=== PATIENT | female | born 1925 | race Caucasian/White ===

== ENCOUNTER → 2016-12-22 | Outpatient (CLI) | payer MEDICARE ==
[~2016-12-22] MED LIST: ACET-1600 PO; CEPH-368 PO; HYDR-3138 PO; HYDR-3240 PO; LORA-869 PO; VIT-3 PO
== END | disposition home or self-care (01) ==
LOC: RAD 14:47
PROVIDERS: ATTEND Family Medicine
DX: R22.43 Localized swelling, mass and lump, lower limb, bilateral (principal)
CPT/HCPCS: 93970

== ENCOUNTER → 2016-12-24 | Outpatient (CLI) | payer MEDICARE | END | disposition home or self-care (01) | LOC: CFH 15:31 | PROVIDERS: ATTEND Family Medicine | DX: M75.102 Unspecified rotator cuff tear or rupture of left shoulder, not specified as traumatic (principal); M75.52 Bursitis of left shoulder; M25.412 Effusion, left shoulder; M19.012 Primary osteoarthritis, left shoulder ==

== ENCOUNTER 2017-02-16 16:53 | Emergency (ER) | payer MEDICARE ==
[~2017-02-16] VITALS: Ht 157.5 cm; Wt 75.0 kg
[2017-02-16 20:05] VITALS: BP 116/71
[2017-02-17] MEDS ORDERED: DICL25TA PO (19:07)
[2017-02-17] MEDS ORDERED: CYCL5TAB PO (19:07)
[2017-02-17] MEDS ORDERED: FURO-93 PO (19:07)
[2017-02-17] MEDS ORDERED: POTA8TAB6 PO (19:07)
== END 2017-02-16 20:07 | disposition home or self-care (01) ==
LOC: ED 18:35
DX: S00.12XA Contusion of left eyelid and periocular area, initial encounter (principal); S00.83XA Contusion of other part of head, initial encounter; S20.212A Contusion of left front wall of thorax, initial encounter; S70.02XA Contusion of left hip, initial encounter; Z90.710 Acquired absence of both cervix and uterus; W01.10XA Fall on same level from slipping, tripping and stumbling with subsequent striking against unspecified object, initial encounter; Y93.89 Activity, other specified; Y92.89 Other specified places as the place of occurrence of the external cause; Y99.8 Other external cause status
CPT/HCPCS: 70450; 70486; 71010; 72125; 93005; 99284

== ENCOUNTER 2017-02-17 17:41 | Inpatient (IN) | payer MEDICARE ==
[~2017-02-17] VITALS: Ht 157.5 cm; Wt 82.5 kg
[2017-02-17] MEDS ORDERED: ACETAMINOPHEN 500 MG TABLET ONE (18:16)
[2017-02-17] MEDS ORDERED: CEFTRIAXONE PMX 1GM/50ML 50 ML ONE (18:16)
[2017-02-17] MEDS ORDERED: ACETAMINOPHEN 500 MG TABLET PO ONE (18:30)
[2017-02-17] MEDS ORDERED: SODIUM CHLORIDE FLUSH 10ML SYR IVF ONE (18:30)
[2017-02-17] MEDS ORDERED: CEFTRIAXONE PMX 1GM/50ML 50 ML IV ONE (18:30)
[2017-02-17] MEDS ORDERED: SODIUM CHLORIDE 0.9% 1,000ML IVBOLUS ONE (18:30)
[2017-02-17 18:43] LABS: ASPARTATE AMINO TRANSFERASE 216 U/L (15-37); BLOOD UREA NITROGEN 25 mg/dL (7-18)
[2017-02-17] MEDS ORDERED: FURO-93 PO (19:07)
[2017-02-17] MEDS ORDERED: CYCL5TAB PO (19:07)
[2017-02-17] MEDS ORDERED: DICL25TA PO (19:07)
[2017-02-17] MEDS ORDERED: POTA8TAB6 PO (19:07)
[2017-02-17] MEDS ORDERED: VANCOMYCIN PER PHARMACY MC PRN ×2 (19:30→22:30)
[2017-02-17] MEDS ORDERED: VANCOMYCIN 1,400 MG in SODIUM CHLORIDE 0.9% 250 ML IV ONE (19:30)
[2017-02-17 22:00] VITALS: BP 121/68
[2017-02-17] MEDS ORDERED: TEMAZEPAM 15 MG CAPSULE PO PRN (22:30)
[2017-02-17] MEDS ORDERED: morphine SULFATE 10 MG/ML, 1ML IVPush PRN (22:30)
[2017-02-17] MEDS ORDERED: CEFTRIAXONE PMX 1GM/50ML 50 ML IV SCH (22:30)
[2017-02-17] MEDS ORDERED: POLYETHYLENE GLYCOL 17 GM PACKET PO PRN (22:30)
[2017-02-17] MEDS ORDERED: ONDANSETRON 2MG/ML, 2ML IVPush PRN (22:30)
[2017-02-17] MEDS ORDERED: OXYcodone IR 5MG TABLET PO PRN (22:30)
[2017-02-17] MEDS ORDERED: DOCUSATE 100 MG CAPSULE PO PRN (22:30)
[2017-02-17] MEDS ORDERED: PHARMACOKINETIC MONITORING MC PRN (23:00)
[2017-02-17] MEDS ORDERED: PHARMACOKINETIC CONSULTATION MC ONE (23:00)
[2017-02-18] MEDS: D5%-0.45% NACL 1,000 ML IV SCH ×2 (00:22→09:52)
[2017-02-18 02:05] VITALS: BP 91/65
[2017-02-18] MEDS ORDERED: MAGNESIUM SULFATE PMX 2GM/50ML 50 ML IV ONE (02:30)
[2017-02-18] MEDS ORDERED: POTASSIUM CHLORIDE 10 MEQ in SODIUM CHLORIDE 0.9% 250 ML IV ONE (03:00)
[2017-02-18] MEDS ORDERED: ALBUTEROL SULFATE 2.5 MG/3 ML ONE (05:37)
[2017-02-18 05:41] LABS: BLOOD UREA NITROGEN 24 mg/dL (7-18)
[2017-02-18 05:45] LABS: ASPARTATE AMINO TRANSFERASE 176 U/L (15-37)
[2017-02-18] MEDS ORDERED: ALBUTEROL SULFATE 2.5 MG/3 ML NPPB ONE (06:00)
[2017-02-18] MEDS ORDERED: DOXYCYCLINE 100 MG in DEXTROSE 5% 250 ML IV SCH (08:00)
[2017-02-18] MEDS ORDERED: HEPARIN 5,000 UNITS/ML, 1ML SQ SCH (08:00)
[2017-02-18 08:24] VITALS: BP 160/75
[2017-02-18] MEDS: SENNA/DOCUSATE TABLET PO SCH (08:24)
[2017-02-18] MEDS ORDERED: PHARMACY MAY ADJ FOR RENAL FX MC PRN (08:30)
[2017-02-18] MEDS: FAMOTIDINE 20 MG TABLET PO SCH (08:33)
[2017-02-18 09:31] LABS: ABG COLLECTION SITE RIGHT RADIAL; COLLATERAL CIRCULATION TESTING NORMAL
[2017-02-18] MEDS: PIPERACILLIN/TAZO/PMX 3.375GM 50 ML IV SCH ×3 (09:52→20:40)
[2017-02-18] MEDS: ACETAMINOPHEN 325 MG TABLET PO PRN (11:55)
[2017-02-18] MEDS ORDERED: OMNIPAQUE 350 MG/ML, 100ML BOTTLE ONE (13:43)
[2017-02-18 13:56] VITALS: BP_SYST 112; BP_SYST 146; BP_DIAS 72; BP_DIAS 78
[2017-02-18] MEDS ORDERED: VANCOMYCIN PER PHARMACY MC PRN (15:30)
[2017-02-18] MEDS ORDERED: PHARMACOKINETIC MONITORING MC PRN (16:00)
[2017-02-18] MEDS ORDERED: VANCOMYCIN 1,200 MG in SODIUM CHLORIDE 0.9% 250 ML IV ONE (16:30)
[2017-02-18] MEDS ORDERED: ALBUTEROL/IPRATROPIUM 2.5MG/0.5MG, 3 ML ONE (18:58)
[2017-02-18] MEDS: ALBUTEROL/IPRATROPIUM 2.5MG/0.5MG, 3 ML NPPB SCH ×2 (19:00→22:20)
[2017-02-18 20:00] VITALS: BP 148/73
[2017-02-18] MEDS ORDERED: SODIUM CHLORIDE 0.9% 1,000 ML IV SCH (22:00)
[2017-02-19] MEDS: ALBUTEROL/IPRATROPIUM 2.5MG/0.5MG, 3 ML NPPB SCH ×6 (01:55→23:30)
[2017-02-19 02:00] VITALS: BP 145/68
[2017-02-19] MEDS: PIPERACILLIN/TAZO/PMX 3.375GM 50 ML IV SCH ×2 (03:38→08:59)
[2017-02-19 06:09] LABS: ASPARTATE AMINO TRANSFERASE 198 U/L (15-37); BLOOD UREA NITROGEN 18 mg/dL (7-18)
[2017-02-19 07:56] VITALS: BP 132/71
[2017-02-19] MEDS: SENNA/DOCUSATE TABLET PO SCH (08:59)
[2017-02-19] MEDS: FAMOTIDINE 20 MG TABLET PO SCH (08:59)
[2017-02-19] MEDS: CEFTAROLINE 600 MG in SODIUM CHLORIDE 0.9% 100 ML IV SCH ×2 (11:49→23:10)
[2017-02-19] MEDS: SODIUM CHLORIDE 0.9% 1,000 ML IV SCH (11:50)
[2017-02-19 14:00] VITALS: BP 128/70
[2017-02-19] MEDS ORDERED: PIPERACILLIN/TAZO/PMX 2.25GM 50 ML IVPB SCH (17:00)
[2017-02-19 20:55] VITALS: BP 133/72
[2017-02-19] MEDS ORDERED: SODIUM CHLORIDE 0.9% 1,000 ML IV SCH (22:00)
[2017-02-20] MEDS: SODIUM CHLORIDE 0.9% 1,000 ML IV SCH (00:20)
[2017-02-20 02:05] VITALS: BP 120/71
[2017-02-20] MEDS: ALBUTEROL/IPRATROPIUM 2.5MG/0.5MG, 3 ML NPPB SCH ×2 (03:30→07:30)
[2017-02-20 06:36] LABS: ASPARTATE AMINO TRANSFERASE 320 U/L (15-37); BLOOD UREA NITROGEN 19 mg/dL (7-18)
[2017-02-20 08:01] VITALS: BP 134/79
[2017-02-20] MEDS: SENNA/DOCUSATE TABLET PO SCH (09:00)
[2017-02-20] MEDS ORDERED: ALBUTEROL/IPRATROPIUM 2.5MG/0.5MG, 3 ML NPPB PRN (09:00)
[2017-02-20] MEDS: ACETAMINOPHEN 325 MG TABLET PO PRN (09:58)
[2017-02-20] MEDS: FAMOTIDINE 20 MG TABLET PO SCH (09:58)
[2017-02-20] MEDS: NS + 20MEQ KCL 1,000 ML IV SCH (09:58)
[2017-02-20 12:04] VITALS: BP 126/56
[2017-02-20] MEDS: CEFTAROLINE 600 MG in SODIUM CHLORIDE 0.9% 100 ML IV SCH (12:05)
[2017-02-20 19:22] VITALS: BP 158/81
[2017-02-21] MEDS: NS + 20MEQ KCL 1,000 ML IV SCH (01:10)
[2017-02-21] MEDS: CEFTAROLINE 600 MG in SODIUM CHLORIDE 0.9% 100 ML IV SCH (01:10)
[2017-02-21 01:23] VITALS: BP 185/72
[2017-02-21 06:04] LABS: BLOOD UREA NITROGEN 19 mg/dL (7-18)
[2017-02-21 07:55] VITALS: BP_SYST 148; BP_SYST 162; BP_DIAS 91
[2017-02-21] MEDS: FAMOTIDINE 20 MG TABLET PO SCH (09:08)
[2017-02-21] MEDS: SENNA/DOCUSATE TABLET PO SCH (09:08)
[2017-02-21 10:27] LABS: ASPARTATE AMINO TRANSFERASE 319 U/L (15-37)
[2017-02-21] MEDS: POTASSIUM CHLORIDE 20 MEQ TAB.ER.PRT PO SCH (11:29)
[2017-02-21] MEDS: FUROSEMIDE 20 MG TABLET PO SCH (11:29)
[2017-02-21] MEDS: METOPROLOL TARTRATE 25 MG TABLET PO SCH ×2 (11:29→21:37)
[2017-02-21] MEDS: CEFTRIAXONE PMX 1GM/50ML 50 ML IV SCH (11:32)
[2017-02-21] MEDS: DOXYCYCLINE 100 MG in DEXTROSE 5% 250 ML IV SCH (14:28)
[2017-02-21 14:41] VITALS: BP 143/89
[2017-02-21] MEDS ORDERED: CETIRIZINE 10 MG TABLET PO SCH (20:00)
[2017-02-21 22:50] VITALS: BP 153/77
[2017-02-22 02:00] VITALS: BP 164/77
[2017-02-22] MEDS: DOXYCYCLINE 100 MG in DEXTROSE 5% 250 ML IV SCH (02:55)
[2017-02-22 05:52] LABS: BLOOD UREA NITROGEN 18 mg/dL (7-18)
[2017-02-22 05:56] LABS: ASPARTATE AMINO TRANSFERASE 187 U/L (15-37)
[2017-02-22 08:00] VITALS: BP 158/85
[2017-02-22] MEDS: METOPROLOL TARTRATE 25 MG TABLET PO SCH (08:46)
[2017-02-22] MEDS: FAMOTIDINE 20 MG TABLET PO SCH (08:47)
[2017-02-22] MEDS: POTASSIUM CHLORIDE 20 MEQ TAB.ER.PRT PO SCH (08:48)
[2017-02-22] MEDS: FUROSEMIDE 20 MG TABLET PO SCH (08:50)
[2017-02-22] MEDS: SENNA/DOCUSATE TABLET PO SCH (08:50)
[2017-02-22] MEDS ORDERED: CETIRIZINE 10 MG TABLET PO SCH ×2 (09:00)
[2017-02-22] MEDS ORDERED: DOXY100T PO (09:52)
[2017-02-22] MEDS ORDERED: METO25TA35 PO (09:52)
[2017-02-22] MEDS ORDERED: CETI10TA18 PO (09:52)
[2017-02-22] MEDS ORDERED: CEFD300C37 PO (09:52)
[2017-02-22] MEDS: CEFTRIAXONE PMX 1GM/50ML 50 ML IV SCH (10:00)
== END 2017-02-22 13:29 | DRG 871 ==
LOC: ED 19:24 → EDIP 19:59 → 4EST 21:41
PROVIDERS: ADMIT Internal Medicine; ATTEND Family Medicine
PROC: 0T9B70Z Drainage of Bladder with Drainage Device, Via Natural or Artificial Opening (ICD-10-PCS; principal; 2017-02-17)
DX: A41.9 Sepsis, unspecified organism (principal); E43 Unspecified severe protein-calorie malnutrition; J69.0 Pneumonitis due to inhalation of food and vomit; N17.0 Acute kidney failure with tubular necrosis; J96.01 Acute respiratory failure with hypoxia; M62.82 Rhabdomyolysis; J98.11 Atelectasis; E04.1 Nontoxic single thyroid nodule; E86.0 Dehydration; Z66 Do not resuscitate; I10 Essential (primary) hypertension; J34.2 Deviated nasal septum; M19.90 Unspecified osteoarthritis, unspecified site; R29.6 Repeated falls; S00.11XA Contusion of right eyelid and periocular area, initial encounter; S00.12XA Contusion of left eyelid and periocular area, initial encounter; W19.XXXA Unspecified fall, initial encounter; Y93.89 Activity, other specified; Y92.89 Other specified places as the place of occurrence of the external cause; Z68.33 Body mass index [BMI] 33.0-33.9, adult
CPT/HCPCS: 36415; 36600; 70450; 70486; 71010; 71275; 72170; 80048; 80053; 80076; 81001; 82550; 82803; 83605; 83735; 84100; 84145; 85025; 85610; 85730; 87040; 87086; 87324; 93005; 93306; 94640; 96365; 96367; J0696; J0712; J2405; J2543; J3370; J3480; J7060; J7613; J7620; Q9967; J3475; J7030; J7050

== ENCOUNTER 2017-03-29 15:21 | Inpatient (IN) | payer MEDICARE ==
[~2017-03-29] VITALS: Ht 157.5 cm; Wt 72.2 kg
[~2017-03-29 15:21] MED LIST changes: +CEFD300C37 PO; +CETI10TA18 PO; +CYCL5TAB PO; +DICL25TA PO; +DOXY100T PO; +FURO-93 PO; +METO25TA35 PO; +POTA8TAB6 PO
[2017-03-29] MEDS ORDERED: ENOXAPARIN 80 MG/0.8 ML SQ ONE (16:30)
[2017-03-29] MEDS ORDERED: SODIUM CHLORIDE FLUSH 10ML SYR IVF ONE (16:30)
[2017-03-29 16:37] LABS: HEMATOCRIT 39.6 % (34.6-47.8); HEMOGLOBIN 13.1 g/dL (11.7-16.4); WHITE BLOOD COUNT 8.7 x10^3/uL (3.4-10)
[2017-03-29 16:40] LABS: BLOOD UREA NITROGEN 22 mg/dL (7-18)
[2017-03-29 16:58] LABS: ANISOCYTOSIS 1+; DIFF TOTAL CELLS COUNTED 100 CELL DIFF
[2017-03-29 16:59] LABS: VERIFY COUNTS? YES
[2017-03-29] MEDS ORDERED: ENOXAPARIN 80 MG/0.8 ML ONE (17:04)
[2017-03-29] MEDS ORDERED: SODIUM CHLORIDE FLUSH 10ML SYR IVF PRN (18:00)
[2017-03-29] MEDS ORDERED: morphine SULFATE 10 MG/ML, 1ML IVPush PRN (18:30)
[2017-03-29] MEDS ORDERED: ONDANSETRON 2MG/ML, 2ML IVPush PRN (18:30)
[2017-03-29] MEDS ORDERED: hydrALAzine 20 MG/ML, 1ML IVPush PRN (18:30)
[2017-03-29] MEDS ORDERED: TEMAZEPAM 15 MG CAPSULE PO PRN (18:30)
[2017-03-29] MEDS ORDERED: ACETAMINOPHEN 325 MG TABLET PO PRN (18:30)
[2017-03-29] MEDS ORDERED: POLYETHYLENE GLYCOL 17 GM PACKET PO PRN (18:30)
[2017-03-29] MEDS: SODIUM CHLORIDE 0.9% 1,000 ML IV SCH (18:30)
[2017-03-29 20:28] VITALS: BP 127/72
[2017-03-29] MEDS ORDERED: HEPARIN 5,000 UNITS/ML, 1ML IV ONE (20:30)
[2017-03-29] MEDS ORDERED: HEPARIN 5,000 UNITS/ML, 1ML IV PRN (20:30)
[2017-03-29] MEDS ORDERED: HEPARIN 25,000 UNITS/500ML PMX 500 ML IV PRN (20:30)
[2017-03-29] MEDS: METOPROLOL TARTRATE 25 MG TABLET PO SCH (21:00)
[2017-03-30] MEDS: METOPROLOL TARTRATE 25 MG TABLET PO SCH ×3 (00:11→20:19)
[2017-03-30 06:14] LABS: HEMATOCRIT 34.4 % (34.6-47.8); HEMOGLOBIN 11.4 g/dL (11.7-16.4); WHITE BLOOD COUNT 7.5 x10^3/uL (3.4-10)
[2017-03-30 06:23] LABS: BLOOD UREA NITROGEN 19 mg/dL (7-18)
[2017-03-30 06:29] VITALS: BP 155/81
[2017-03-30] MEDS: SODIUM CHLORIDE 0.9% 1,000 ML IV SCH (07:50)
[2017-03-30] MEDS: HYDROcodone/APAP 5/325 TABLET PO PRN ×2 (08:44→19:30)
[2017-03-30] MEDS: RIVAROXABAN 15 MG TABLET PO SCH ×2 (12:06→18:09)
[2017-03-31 07:25] VITALS: BP 161/75
[2017-03-31] MEDS: RIVAROXABAN 15 MG TABLET PO SCH (07:52)
[2017-03-31] MEDS: METOPROLOL TARTRATE 25 MG TABLET PO SCH (07:53)
[2017-03-31] MEDS: HYDROcodone/APAP 5/325 TABLET PO PRN (10:07)
[2017-03-31] MEDS ORDERED: RIVA20TA PO (13:07)
[2017-03-31] MEDS ORDERED: RIVA15TA PO (13:07)
[2017-03-31] MEDS ORDERED: POLY17PO5 PO (13:07)
[2017-03-31] MEDS ORDERED: POLYETHYLENE GLYCOL 17 GM PACKET PO PRN (15:00)
[2017-03-31] MEDS ORDERED: ONDANSETRON 2MG/ML, 2ML IVPush PRN (15:00)
[2017-03-31] MEDS ORDERED: ACETAMINOPHEN 325 MG TABLET PO PRN (15:00)
== END 2017-03-31 14:26 | disposition home or self-care (01) | DRG 682 ==
LOC: ED 16:35 → EDIP 17:06 → 4WST 20:20
PROVIDERS: ADMIT Internal Medicine; ATTEND Internal Medicine
DX: I12.9 Hypertensive chronic kidney disease with stage 1 through stage 4 chronic kidney disease, or unspecified chronic kidney disease (principal); N17.0 Acute kidney failure with tubular necrosis; I82.412 Acute embolism and thrombosis of left femoral vein; N18.2 Chronic kidney disease, stage 2 (mild); Z80.3 Family history of malignant neoplasm of breast; Z82.49 Family history of ischemic heart disease and other diseases of the circulatory system; Z85.3 Personal history of malignant neoplasm of breast; Z87.891 Personal history of nicotine dependence; Z90.11 Acquired absence of right breast and nipple; Z96.659 Presence of unspecified artificial knee joint; Z91.81 History of falling
CPT/HCPCS: 36415; 71010; 80048; 82040; 85025; 85520; 85610; 85730; 93005; 96372; J1644; J1650